=== PATIENT | male | born 1995 | race Caucasian/White ===

== ENCOUNTER 2017-03-22 16:13 | Emergency (ER) | payer BC ==
[~2017-03-22] VITALS: Ht 182.9 cm; Wt 88.5 kg
--- NOTE | 2017-03-22 16:24 | PHYS DOC ---
Adult General Chief Complaint Chief Complaint: CHEST PAIN HPI HPI Patient is a 22 year old male presenting to the emergency department for evaluation of chest pain that started while he was at [employer] restaurant approximately 15 minutes prior to arrival. Patient says that it feels like something is sitting on his chest. He says he keeps having pain waves that come and go and now the pain is going away again. He says that he feels short of breath when the pressure comes on. He denies any nausea vomiting or diaphoresis. He also denies any cough or recent travel immobility surgeries prior DVT PE or estrogen supplements. His perc score is equal to 0. Heart score is equal to 102 troponin based off possible family history of heart disease although he is quite nonspecific about his family history as he just says multiple members have heart problems. He is in no obvious distress with normal vital signs. Review of Systems Review of Systems Constitutional: Denies fever or chills [] Eyes: Denies change in visual acuity, redness, or eye pain [] HENT: Denies nasal congestion or sore throat [] Respiratory: Denies cough. + shortness of breath [] Cardiovascular: + CP GI: Denies abdominal pain, nausea, vomiting, bloody stools or diarrhea [] : Denies dysuria or hematuria [] Musculoskeletal: Denies back pain or joint pain [] Integument: Denies rash or skin lesions [] Neurologic: Denies headache, focal weakness or sensory changes [] Current Medications Current Medications Current Medications Medications (Trade) Dose Ordered Sig/Rhett Start Time Stop Time Status Last Admin Dose Admin Albuterol/ Ipratropium (Duoneb) 3 ml 1X ONCE 03/22/17 16:30 03/22/17 16:38 DC 03/22/17 16:40 3 ML Aspirin (Ecotrin) 325 mg 1X ONCE 03/22/17 16:30 03/22/17 16:38 DC 03/22/17 16:47 325 MG Lorazepam (Ativan) 1 mg 1X ONCE 03/22/17 16:30 03/22/17 16:38 DC 03/22/17 16:47 1 MG Multi-Ingredient Mouthwash/Gargle (Gi Cocktail Single Dose) 15 ml 1X ONCE 03/22/17 16:30 03/22/17 16:38 DC 03/22/17 16:47 15 ML Allergies Allergies Allergies Coded Allergies Type Severity Reaction Last Updated Verified Sulfa (Sulfonamide Antibiotics) Allergy Unknown Hives 03/22/17 Yes Physical Exam Physical Exam Constitutional: Well developed, well nourished, no acute distress, non-toxic appearance. [] HENT: Normocephalic, atraumatic, bilateral external ears normal, oropharynx moist, no oral exudates, nose normal. [] Eyes: PERRLA, EOMI, conjunctiva normal, no discharge. [] Neck: Normal range of motion, no tenderness, supple, no stridor. [] Cardiovascular:Heart rate regular rhythm, no murmur [] Lungs & Thorax: Bilateral breath sounds clear to auscultation [] Abdomen: Bowel sounds normal, soft, no tenderness, no masses, no pulsatile masses. [] Skin: Warm, dry, no erythema, no rash. [] Back: No tenderness, no CVA tenderness. [] Extremities: No tenderness, no cyanosis, no clubbing, ROM intact, no edema. [] Neurologic: Alert and oriented X 3, normal motor function, normal sensory function, no focal deficits noted. [] Psychologic: Affect normal, judgement normal, mood normal. [] Current Patient Data Vital Signs Vital Signs Date Time Temp Pulse Resp B/P Pulse Ox O2 Delivery O2 Flow Rate FiO2 03/22/17 16:40 Room Air 03/22/17 16:16 97.8 73 16 146/70 98 97.8 Lab Values Laboratory Tests Test 03/22/17 16:40 POC Troponin I 0.00ng/ml (<0.08) EKG EKG Normal sinus rhythm at 64 bpm with normal axis no deviation no ST elevation or depression and normal T waves. Radiology/Procedures Radiology/Procedures Chest x-ray shows normal heart size normal mediastinum and no free air with no obvious pneumothorax or opacity, Course & Med Decision Making Course & Med Decision Making Patient's EKG chest x-ray and troponin are negative and he says that his pain is now gone. He was treated with aspirin and GI cocktail and Ativan and a breathing treatment. I suspect that his pain is some sort of esophageal spasm given started while he was eating at a restaurant however anxiety bronchoconstriction are also considerations. Either way I do not think this is a acute cardio primary process such as myocardial infarction dissection pulmonary embolism. 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 Dragon Disclaimer Dragon Disclaimer This electronic medical record was generated, in whole or in part, using a voice recognition dictation system. Departure Departure Impression: Primary Impression: Chest pain Disposition: HOME, SELF-CARE Condition: GOOD Referrals: TARIQ FERNANDEZ MD Patient Instructions: Chest Pain (Nonspecific) Problem Qualifiers Primary Impression: Chest pain Chest pain type: unspecified Qualified Code: R07.9 - Chest pain, unspecified NAIN CHAUDHARY DO Mar 22, 2017 16:24
[2017-03-22] MEDS ORDERED: ASPIRIN ENTERIC COATED 325 MG TABLET.DR. PO ONE (16:30)
[2017-03-22] MEDS ORDERED: LORAZEPAM 1 MG TABLET. PO ONE (16:30)
[2017-03-22] MEDS ORDERED: LIDO:MAALOX:DONNATAL 1:1:1 15 ML SINGLE DOSE SWSW ONE (16:30)
[2017-03-22] MEDS ORDERED: IPRATRPIUM/ALBUTEROL 0.5/2.5MG 3 ML NEBU. NEB ONE (16:30)
--- NOTE | 2017-03-22 16:37 | EKG ---
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
--- NOTE | 2017-03-22 16:46 | RAD ---
Portable AP upright view CXR: Clinical indications: Chest pain today. Comparison: None available. Findings: No acute lung infiltrate or pleural effusion or pulmonary edema or lung mass or pneumothorax is seen. The heart size, pulmonary vasculature, mediastinum and both kaylene are unremarkable. Impression: No acute radiographic abnormality is seen.
[2017-03-22 16:48] VITALS: BP 130/83
== END 2017-03-22 17:11 | disposition home or self-care (01) ==
LOC: ER 16:13
DX: R07.89 Other chest pain (principal); R06.02 Shortness of breath; Z88.2 Allergy status to sulfonamides
CPT/HCPCS: 71010; 84484; 93005; 94250; 94640; 99284; J7620